=== PATIENT | female | born 1965 | race Two or more races ===

== ENCOUNTER 2017-09-08 21:55 | Emergency (ER) | payer SELFPAY ==
[~2017-09-08] VITALS: Ht 160 cm; Wt 102.1 kg
[~2017-09-08 21:55] MED LIST: GLIPIZIDE5 MG ORAL; TRAMADOL HCL50 MG ORAL
[2017-09-08] MEDS ORDERED: LORazepam Inj 2mg/ml 1ml IV ONE (22:30)
[2017-09-08] MEDS ORDERED: ATIVAN1 MG ORAL (23:21)
--- NOTE | 2017-09-08 23:21 | Emergency Room Report ---
History of Present Illness General Chief Complaint: Altered Level of Consciousness Source: Patient, Family Member Present Illness HPI This is a 52-year-old female with history hypertension and diabetes. She presents with chief complaint of altered mental status. She was at home talking to her family. Her daughter just the other day. She was crying uncontrollably. According to the other daughter, patient stiffen up and became unresponsive. Family later down. Patient was breathing normally and had normal heart rate. They called 911. Here patient was crying said that she felt better now. No nausea no vomiting. No chest pain. Allergies: Coded Allergies: No Known Allergies (Unverified , 09/08/17) Patient History Past Medical History: see triage record, old chart reviewed, DM Past Surgical History: other Pertinent Family History: none Social History: Denies: smoking Now: No Immunizations: other Reviewed Nursing Documentation: PMH: Agreed; PSxH: Agreed Nursing Documentation-PMH Past Medical History: No History, Except For Hx Diabetes: Yes Review of Systems Eye: Denies: eye pain, blurred vision ENT: Denies: ear pain, nose congestion, throat swelling Respiratory: Denies: cough, shortness of breath Cardiovascular: Denies: chest pain, palpitations Gastrointestinal: Denies: abdominal pain, diarrhea, nausea, vomiting Musculoskeletal: Denies: back pain, joint pain Skin: Denies: rash Neurological: Denies: headache, numbness Endocrine: Denies: increased thirst, increased urine Hematologic/Lymphatic: Denies: easy bruising All Other Systems: negative except mentioned in HPI Physical Exam Vital Signs Date Time Temp Pulse Resp B/P (MAP) Pulse Ox O2 Delivery O2 Flow Rate FiO2 09/08/17 21:50 97.9 81 18 152/86 96 Room Air 97.9 vitals with high blood pressure Sp02 EP Interpretation: reviewed, normal General Appearance: well appearing, no apparent distress, alert Head: normocephalic, atraumatic Eyes: bilateral eye PERRL, bilateral eye EOMI ENT: hearing grossly normal, normal pharynx Neck: full range of motion, supple, no meningismus Respiratory: chest non-tender, lungs clear, normal breath sounds Cardiovascular #1: regular rate, rhythm, no murmur Gastrointestinal: normal bowel sounds, non tender, no mass, no organomegaly, no bruit, non-distended Musculoskeletal: back normal, gait/station normal, normal range of motion Psychiatric: depressed affect - crying, anxious Skin: warm/dry Medical Decision Making Diagnostic Impression: Primary Impression: Panic attack as reaction to stress ER Course Patient with hyperventilation/panic attack secondary to acute stress reaction. No suicidal thought homicidal thought. No TIA or CVA. No ACS. better after Ativan. We'll discharge home. Last Vital Signs Date Time Temp Pulse Resp B/P (MAP) Pulse Ox O2 Delivery O2 Flow Rate FiO2 09/08/17 21:50 97.9 81 18 152/86 96 Room Air 97.9 Status: improved Disposition: HOME, SELF-CARE Condition: Stable Scripts Lorazepam* (ATIVAN*) 1 Mg Tablet 1 MG ORAL THREE TIMES A DAY, #20 TAB Prov: ROBBIN LAGUNAS M.D. 09/08/17 Referrals: NOT CHOSEN [facility]/,REFERRING (PCP) Additional Instructions: Follow-up with your doctor in 7 days. Return if symptom worsen. ROBBIN LAGUNAS M.D. Sep 08, 2017 23:21
[2017-09-08 23:35] VITALS: BP 121/89
== END 2017-09-08 23:36 | disposition home or self-care (01) ==
LOC: EDBD 21:55 → EMR 22:56
DX: R41.82 Altered mental status, unspecified (principal); F41.0 Panic disorder [episodic paroxysmal anxiety]; E11.9 Type 2 diabetes mellitus without complications
CPT/HCPCS: 96374; 99284